=== PATIENT | male | born 1970 | race Caucasian/White ===

== ENCOUNTER 2017-08-09 13:08 | Emergency (ER) | payer OTHER ==
--- NOTE | 2017-08-09 13:12 | ER Report ---
History and Physical Time Seen By MD: 13:11 HPI/ROS CHIEF COMPLAINT: Chest pain HISTORY OF PRESENT ILLNESS: This is a 47-year-old male who presents to the emergency department for chest pain. [place], [place] on [place] flew into [place] last night, last night he developed some left- sided arm tingling, still had some of the arm tingling today on his way through [place]. Patient also developed some chest pain and some chest tightness with some shortness of breath, which began at 0900. 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 At urgent care and subsequently they sent him to the emergency department for further evaluation. Patient states he had a similar episode of this when he was in [place] about 10,000 feet last year. Patient did take 325 mg aspirin prior to arrival. Patient denies sweating, rashes, no fevers or chills. He does have a family history of cardiac disease. REVIEW OF SYSTEMS: Constitutional: No fever, no chills. Eyes: No discharge. ENT: No sore throat. Cardiovascular: As above. Respiratory: As above. Gastrointestinal: No abdominal pain, no vomiting. Genitourinary: No hematuria. Musculoskeletal: No back pain. Skin: No rashes. Neurological: As above. Allergies: Coded Allergies: Penicillins (Verified Allergy, Unknown, 08/09/17) Home Meds No Active Prescriptions or Reported Meds Past Medical/Surgical History The patient has no significant past medical or surgical history. Reviewed Nurses Notes: Yes Constitutional Vital Sign - Last 24 Hours 08/09/17 08/09/17 08/09/17 08/09/17 13:10 13:10 13:23 13:30 Temp 98.3 Pulse 82 ??? Resp 12 B/P (MAP) 167/107 167/107 (127) 134/84 (101) Pulse Ox 94 O2 Delivery Room Air 08/09/17 08/09/17 08/09/17 13:38 13:53 14:00 Pulse 77 82 Resp 20 14 B/P (MAP) 125/79 (94) Pulse Ox 95 93 Intake and Output 08/09/17 08/09/17 08/10/17 15:00 23:00 07:00 Intake Total 300 ml Balance 300 ml Physical Exam General Appearance: The patient is alert, has no immediate need for airway protection and no signs of toxicity. Eyes: Pupils equal and round no pallor or injection. ENT, Mouth: Mucous membranes are moist. Respiratory: There are no retractions, lungs are clear to auscultation. Cardiovascular: Regular rate and rhythm, no murmurs, clicks or rubs. Gastrointestinal: Abdomen is soft and non tender, no masses, bowel sounds normal. Neurological: Alert and oriented 4. Moving all extremities. No focal deficits. Following all commands. Skin: Warm and dry, no rashes. Musculoskeletal: Neck is supple non tender. Extremities are nontender, nonswollen and have full range of motion. DIFFERENTIAL DIAGNOSIS: After history and physical exam differential diagnosis was considered for chest pain including but not limited to myocardial ischemia, pericarditis pulmonary embolus, altitude illness, chest wall pain, pleural inflammation and pulmonary infectious causes. Medical Decision Making Data Points Result Diagram: 08/09/17 1316 08/09/17 1316 Laboratory Hematology Test 08/09/17 13:16 Red Blood Count 4.70 M/uL (4.00-5.60) Mean Corpuscular Volume 94.2 fL (80.0-96.0) Mean Corpuscular Hemoglobin 32.8 pg (26.0-33.0) Mean Corpuscular Hemoglobin Concent 34.8 g/dL (32.0-36.0) Red Cell Distribution Width 13.1 % (11.5-14.5) Mean Platelet Volume 11.7 fL (7.2-11.1) Neutrophils (%) (Auto) 52.7 % (39.4-72.5) Lymphocytes (%) (Auto) 39.0 % (17.6-49.6) Monocytes (%) (Auto) 6.6 % (4.1-12.4) Eosinophils (%) (Auto) 0.8 % (0.4-6.7) Basophils (%) (Auto) 0.9 % (0.3-1.4) Nucleated RBC Relative Count (auto) 0.0 /100WBC Neutrophils # (Auto) 5.0 K/uL (2.0-7.4) Lymphocytes # (Auto) 3.7 K/uL (1.3-3.6) Monocytes # (Auto) 0.6 K/uL (0.3-1.0) Eosinophils # (Auto) 0.1 K/uL (0.0-0.5) Basophils # (Auto) 0.1 K/uL (0.0-0.1) Nucleated RBC Absolute Count (auto) 0.00 K/uL D-Dimer Quantitative (PE/DVT) 0.32 ug/ml (0-0.50) Sodium Level 142 mmol/L (137-145) Potassium Level 3.4 mmol/L (3.5-5.0) Chloride Level 101 mmol/L (98-107) Carbon Dioxide Level 29 mmol/L (22-30) Blood Urea Nitrogen 12 mg/dl (9-21) Creatinine 0.90 mg/dl (0.66-1.25) Glomerular Filtration Rate Calc > 60.0 Random Glucose 95 mg/dl (75-110) Calcium Level 9.8 mg/dl (8.4-10.2) Total Bilirubin 0.3 mg/dl (0.2-1.3) Aspartate Amino Transf (AST/SGOT) 72 U/L (0-35) Alanine Aminotransferase (ALT/SGPT) 73 U/L (0-56) Alkaline Phosphatase 92 U/L (0-126) Troponin I < 0.012 ng/ml Total Protein 8.6 g/dl (6.3-8.2) Albumin 4.9 g/dl (3.5-5.0) Chemistry Test 08/09/17 13:16 White Blood Count 9.4 k/uL (4.5-11.0) Red Blood Count 4.70 M/uL (4.00-5.60) Hemoglobin 15.4 g/dL (14.0-18.0) Hematocrit 44.3 % (42.0-52.0) Mean Corpuscular Volume 94.2 fL (80.0-96.0) Mean Corpuscular Hemoglobin 32.8 pg (26.0-33.0) Mean Corpuscular Hemoglobin Concent 34.8 g/dL (32.0-36.0) Red Cell Distribution Width 13.1 % (11.5-14.5) Platelet Count 166 K/uL (150-450) Mean Platelet Volume 11.7 fL (7.2-11.1) Neutrophils (%) (Auto) 52.7 % (39.4-72.5) Lymphocytes (%) (Auto) 39.0 % (17.6-49.6) Monocytes (%) (Auto) 6.6 % (4.1-12.4) Eosinophils (%) (Auto) 0.8 % (0.4-6.7) Basophils (%) (Auto) 0.9 % (0.3-1.4) Nucleated RBC Relative Count (auto) 0.0 /100WBC Neutrophils # (Auto) 5.0 K/uL (2.0-7.4) Lymphocytes # (Auto) 3.7 K/uL (1.3-3.6) Monocytes # (Auto) 0.6 K/uL (0.3-1.0) Eosinophils # (Auto) 0.1 K/uL (0.0-0.5) Basophils # (Auto) 0.1 K/uL (0.0-0.1) Nucleated RBC Absolute Count (auto) 0.00 K/uL D-Dimer Quantitative (PE/DVT) 0.32 ug/ml (0-0.50) Glomerular Filtration Rate Calc > 60.0 Calcium Level 9.8 mg/dl (8.4-10.2) Total Bilirubin 0.3 mg/dl (0.2-1.3) Aspartate Amino Transf (AST/SGOT) 72 U/L (0-35) Alanine Aminotransferase (ALT/SGPT) 73 U/L (0-56) Alkaline Phosphatase 92 U/L (0-126) Troponin I < 0.012 ng/ml Total Protein 8.6 g/dl (6.3-8.2) Albumin 4.9 g/dl (3.5-5.0) Coagulation Test 08/09/17 13:16 D-Dimer Quantitative (PE/DVT) 0.32 ug/ml EKG/Imaging EKG Interpretation 12 lead EKG: Time of EKG 1317. Rhythm: normal sinus rhythm, ventricular rate 68 bpm. [place]: normal QRS: normal ST segments: No ST elevation or depression identified. Imaging Location: [facility] Patient: Lionel Rivero : 1970 Visit/Account:[id number] Date of Sevice: 08/09/2017 CHEST PA AND LAT COMPARISONS: None. ADDITIONAL PERTINENT HISTORY: Chest pain FINDINGS: Cardiomediastinal silhouette: Negative. Pulmonary vasculature: Negative. Lung castro: Negative. Pleural spaces: Negative. Osseous structures: Negative. Surrounding soft tissues: Negative. IMPRESSION: No evidence of acute cardiopulmonary disease. Report Dictated By: David Narayan MD at 08/09/2017 1:37 PM Report E-Signed By: David Narayan MD at 08/09/2017 1:38 PM [id number] ED Course/Re-evaluation Clinical Indication for ER IV: Hydration, IV Access ED Course The patient was minutes roomed. A history of score obtained. Differential diagnoses were considered. An IV was started. A CBC, CMP, d-dimer, troponin were obtained. Patient was given a 1 L normal saline bolus. Lab studies unremarkable, negative d-dimer, negative troponin. Two-view chest x-ray negative for any acute cardiopulmonary process. It has been approximately 5 hours since the chest pain/pressure began ,therefore no repeat troponin was done. I did review the lab studies with the patient and did tell him his symptoms, including his arm and leg tingling are likely due to altitude sickness. He also told me he had a complete cardiac work-up by his PCP as he has been having the left sided arm numbness and tingling for several months, which was negative. I did suggest when he returns to follow up for cervical spine imaging, as he has had some traumatic neck injuries when he was younger and this could be the source. I did tell the patient that descending to a lower elevation will help with his symptoms, then take some time to acclimate to elevation, as well as keeping up on his water intake. The patient expressed understanding and was discharged. I did tell the patient to follow up in the nearest clinic or ED for worsening symptoms. Patient was smiling and complaint free a the time of discharge. Decision to Disposition Date: Aug 09, 2017 Decision to Disposition Time: 13:57 Depart Departure Latest Vital Signs Vital Signs Date Time Temp Pulse Resp B/P (MAP) Pulse Ox O2 Delivery O2 Flow Rate FiO2 08/09/17 14:00 125/79 (94) 08/09/17 13:53 82 14 93 08/09/17 13:10 98.3 Room Air Impression: Primary Impression: Chest pain of unknown etiology Additional Impressions: Shortness of breath Altitude illness Condition: Improved Disposition: HOME OR SELF-CARE New Scripts No Active Prescriptions or Reported Meds Patient Instructions: Chest Pain (ED), Dyspnea (ED), Mountain Sickness (ED) Additional Instructions: The test for your heart was negative, the test for blood clots was negative. No indication of heart strain on your EKG. Normal chest Xray. All the other lab studies were unremarkable. The symptoms you are feeling are likely due to altitude sickness, if you are not traveling to a lower elevation, be sure to drink plenty of water and try to get as much rest as possible. Take Ibuprofen or Tylenol as needed for aches and pains. If on your trip you have increased shortness of breath, worsening chest pain or anything else that is concerning, please seek medical attention right away. If you are in [place] and need to return to the ED please do so. Problem Qualifiers Additional Impressions: Altitude illness Encounter type: initial encounter Qualified Codes: T70.29XA - Other effects of high altitude, initial encounter LUIS FERNANDO MOFFETT SKILLED NURSING FACILITY COUNSELOR-BC Aug 09, 2017 13:12
[2017-08-09] MEDS ORDERED: NS(*) 0.9% 1000 ML BAG 1,000 ML IV ONE (13:15)
[2017-08-09] MEDS ORDERED: ASPIRIN 81 MG CHEW PO ONE (13:15)
--- NOTE | 2017-08-09 13:21 | EKG ---
[place] [facility] [place] NILESH FARMER : [id number] MR: [id number] V: [id number] EXAM DATE: ORDERING PHYSICIAN: LUIS FERNANDO MOFFETT TECHNOLOGIST: TORI Garcia Reason : CP Blood Pressure : / mmHG Vent. Rate : 068 BPM Atrial Rate : 068 BPM P-R Int : 164 ms QRS Dur : 104 ms QT Int : 384 ms P-R-T Axes : 051 -17 011 degrees QTc Int : 408 ms Sinus rhythm Left axis Nonspecific interventricular conduction delay Nonspecific ST findings anterior leads Borderline ECG No previous ECGs available Confirmed by BALDOMERO MARIA ([id number] on 08/10/2017 5:40:36 AM Referred By: LESLYE Confirmed By:BALDOMERO MARIA
[2017-08-09 13:26] LABS: PLATELET COUNT, AUTOMATED 166 K/uL (150-450)
--- NOTE | 2017-08-09 13:41 | RADIOLOGY IMAGING REPORT ---
FACILITY: [facility] PATIENT NAME: Lionel Rivero : 1970 MR: [id number] V: [id number] EXAM DATE: ORDERING PHYSICIAN: LUIS FERNANDO MOFFETT TECHNOLOGIST: Location: [facility] Patient: Lionel Rivero : 1970 Visit/Account:[id number] Date of Sevice: 08/09/2017 CHEST PA AND LAT COMPARISONS: None. ADDITIONAL PERTINENT HISTORY: Chest pain FINDINGS: Cardiomediastinal silhouette: Negative. Pulmonary vasculature: Negative. Lung castro: Negative. Pleural spaces: Negative. Osseous structures: Negative. Surrounding soft tissues: Negative. IMPRESSION: No evidence of acute cardiopulmonary disease. Report Dictated By: David Narayan MD at 08/09/2017 1:37 PM Report E-Signed By: David Narayan MD at 08/09/2017 1:38 PM WSN:[id number]
[2017-08-09 14:00] VITALS: BP 125/79
== END 2017-08-09 14:22 | disposition home or self-care (01) ==
LOC: ER 13:18
DX: T70.29XA Other effects of high altitude, initial encounter (principal); R07.9 Chest pain, unspecified; R06.02 Shortness of breath
CPT/HCPCS: 71046; 84484; 85025; 85379; 93005; 96360; 99284; J7030; 82040; 82247; 82310; 82374; 82435; 82565; 82947; 84075; 84132; 84155; 84295; 84450; 84460; 84520